=== PATIENT | female | born 1980 | race Caucasian/White ===

== ENCOUNTER 2020-12-04 15:28 | Emergency (ER) | payer OTHER ==
[2020-12-04 15:53] LABS: HEMOGLOBIN 12.1 gm/dl (12.3-15.3); RED BLOOD COUNT 4.54 M/UL (4.00-5.10); WHITE BLOOD COUNT 10.4 K/UL (4.5-11.0)
[2020-12-04 16:17] LABS: BUN/CREATININE RATIO 16 (0-10)
[2020-12-04] MEDS ORDERED: CEPHALEXIN500 MG PO (18:01)
[2020-12-04] MEDS ORDERED: HYDROCODON-ACE1 EAC4 PO ×4 (18:01→19:23)
[2020-12-04] MEDS ORDERED: BACTROBAN OINT22 GM EXT (18:03)
== END 2020-12-04 19:35 | disposition home or self-care (01) ==
LOC: ER1 15:28
PROVIDERS: Emergency Medicine
DX: S09.90XA Unspecified injury of head, initial encounter (principal); S13.4XXA Sprain of ligaments of cervical spine, initial encounter; S30.1XXA Contusion of abdominal wall, initial encounter; S20.214A Contusion of middle front wall of thorax, initial encounter; S60.552A Superficial foreign body of left hand, initial encounter; F17.200 Nicotine dependence, unspecified, uncomplicated; Z20.822 Contact with and (suspected) exposure to COVID-19; V49.40XA Driver injured in collision with unspecified motor vehicles in traffic accident, initial encounter; Y92.410 Unspecified street and highway as the place of occurrence of the external cause
CPT/HCPCS: 70450; 71045; 71260; 72125; 73070; 73130; 73590; 80053; 81001; 83605; 84703; 85025; 86850; 86900; 86901; 90715; 93005; 99284; G0480; J2270; J2405; Q9967; U0002